=== PATIENT | male | born 1945 | race Caucasian/White ===

== ENCOUNTER 2020-04-29 15:59 | Inpatient (IN) ==
[2020-04-29 17:21] LABS: Basophils % 0.7 % (0.0-0.8); Eosinophils # 0.3 10*3/uL (0.0-0.87); Eosinophils % 5.9 % (0.00-10.9); Hematocrit 36.7 VOL% (42.0-52.0); Hemoglobin 12.3 GM/DL (14.0-18.0); Immature Granulocytes % 0.2 %; Immature Granulocytes Absolute 0.01 #; Lymphocytes # 1.5 10*3/uL (1.4-4.0); Lymphocytes % 26.1 % (21.2-54.2); Mean Corpuscular HGB Conc 33.5 GM/DL (32-36); Mean Corpuscular Volume 96.8 FL (87-102); Mean Platelet Volume 10.3 FL (9.6-12.0); Monocytes % 11.2 % (1.7-12.7); Neutrophils % 55.9 % (38.7-73.9); Platelet Count 162 T/CUMM (130-400); Red Blood Count 3.79 MC/CUMM (3.8-5.5); Red Cell Distribution Width 12.9 % (9.3-17.3); White Blood Count 5.6 T/CUMM (4-12)
[2020-04-29 18:11] LABS: Albumin 3.3 G/DL (3.4-5.0); Bilirubin,Total 0.7 MG/DL (0.2-1.0); Osmolality,Calculated 294.7 MOS/KG (273-304); Potassium 3.9 MMOL/L (3.5-5.1); Total Protein 6.5 G/DL (6.4-8.3)
[2020-04-29 19:18] LABS: Bilirubin,Urine Negative (Negative); Blood, Urine Negative (Negative); Glucose,Urine (UA) Negative (Negative); Ketones,Urine Negative (Negative); Mucus,Urine Occasional /LPF (Occasional); Nitrite,Urine Negative (Negative); Protein,Urine Negative; RBC,Urine 2 /HPF (0-4); Squamous Epithelial Cell,Urine Occasional /HPF (0-10); Urine Appearance CLEAR (Clear); Urine Color Yellow (Yellow); Urine Specific Gravity 1.012 (1.001-1.035); Urine Urobilinogen < 2.0 EU/DL (0.2-1.0); WBC,Urine 1 /HPF (0-6)
[2020-04-29 19:26] LABS: Barbiturates Screen,Urine Negative (Negative); Benzodiazepines Screen,Urine Negative (Negative); Cannabinoid Screen,Urine Negative (Negative); Opiate Screen,Urine Negative (Negative); Phencyclidine Screen,Urine Negative (Negative)
[2020-04-29] MEDS ORDERED: DEXTROSE 50% 25 GM/50 ML VIAL IV PRN (21:37)
[2020-04-29] MEDS ORDERED: ACETAMINOPHEN 325 MG TABLET PO PRN (21:37)
[2020-04-29] MEDS ORDERED: GLUCAGON 1 MG VIAL IM PRN (21:37)
[2020-04-29] MEDS ORDERED: ONDANSETRON 4 MG/2 ML VIAL IV PRN (21:37)
[2020-04-29] MEDS ORDERED: hydrALAZINE 20 MG/1 ML VIAL IV PRN (21:47)
[2020-04-29] MEDS: ENOXAPARIN 30 MG/0.3 ML SYRINGE SUBCUT SCH (23:20)
[2020-04-29] MEDS: SODIUM CHLORIDE 0.45% 1,000 ML IV SCH (23:22)
[2020-04-30] MEDS: SODIUM CHLORIDE 0.45% 1,000 ML IV SCH ×3 (07:22→21:13)
[2020-04-30 09:09] LABS: Basophils % 0.9 % (0.0-0.8); Eosinophils # 0.3 10*3/uL (0.0-0.87); Eosinophils % 5.4 % (0.00-10.9); Hematocrit 36.2 VOL% (42.0-52.0); Hemoglobin 12.4 GM/DL (14.0-18.0); Immature Granulocytes % 0.4 %; Immature Granulocytes Absolute 0.02 #; Lymphocytes # 1.1 10*3/uL (1.4-4.0); Lymphocytes % 24.5 % (21.2-54.2); Mean Corpuscular HGB Conc 34.3 GM/DL (32-36); Mean Platelet Volume 10.1 FL (9.6-12.0); Monocytes % 10.3 % (1.7-12.7); Neutrophils % 58.5 % (38.7-73.9); Platelet Count 161 T/CUMM (130-400); Red Blood Count 3.81 MC/CUMM (3.8-5.5); Red Cell Distribution Width 12.7 % (9.3-17.3); White Blood Count 4.7 T/CUMM (4-12)
[2020-04-30] MEDS: PANTOPRAZOLE 40 MG TABLET PO SCH (09:15)
[2020-04-30 09:29] LABS: Albumin 3.1 G/DL (3.4-5.0); Bilirubin,Total 0.6 MG/DL (0.2-1.0); Calcium 10.5 MG/DL (8.5-10.1); Osmolality,Calculated 294.7 MOS/KG (273-304); Total Protein 6.2 G/DL (6.4-8.3)
[2020-04-30 09:30] LABS: Risk Ratio 2.42; VLDL CHOLESTEROL 13.6 MG/DL
[2020-04-30] MEDS: ENOXAPARIN 30 MG/0.3 ML SYRINGE SUBCUT SCH (21:13)
[2020-05-01] MEDS: SODIUM CHLORIDE 0.45% 1,000 ML IV SCH ×3 (05:01→21:33)
[2020-05-01 06:02] LABS: Calcium 10.4 MG/DL (8.5-10.1); Osmolality,Calculated 289.1 MOS/KG (273-304); Potassium 3.5 MMOL/L (3.5-5.1)
[2020-05-01] MEDS: PANTOPRAZOLE 40 MG TABLET PO SCH (08:47)
[2020-05-01] MEDS: amLODIPine 5 MG TABLET PO SCH (10:01)
[2020-05-01] MEDS: ENOXAPARIN 30 MG/0.3 ML SYRINGE SUBCUT SCH (21:32)
[2020-05-02] MEDS: SODIUM CHLORIDE 0.45% 1,000 ML IV SCH (05:05)
[2020-05-02 06:25] LABS: Osmolality,Calculated 289.8 MOS/KG (273-304); Potassium 3.6 MMOL/L (3.5-5.1)
[2020-05-02] MEDS: PANTOPRAZOLE 40 MG TABLET PO SCH (08:57)
[2020-05-02] MEDS: amLODIPine 5 MG TABLET PO SCH (08:57)
[2020-05-02 11:46] VITALS: BP 169/72
[2020-05-02 13:19] LABS: Total Volume,Urine 3800 ML (400-2000)
[2020-05-02 13:25] LABS: Total Protein 24 Hr Ur Result 570 MG/24HR (0-149.1)
[2020-05-03 07:53] LABS: Total Protein (Chem) 6.2 G/DL (6.4-8.3)
[2020-05-03 09:21] LABS: 24 Hr Protein (Bench) 570 MG/24HR (0-149.1)
[2020-05-03 10:02] LABS: Albumin (SPE) 4.3 G/DL (3.2-5.3); Albumin (SPE) Rel % 68.6 %; Alpha 1 (SPE) 0.1 G/DL (0.1-0.4); Alpha 1 (SPE) Rel % 2.2 %; Alpha 2 (SPE) 0.5 G/DL (0.4-1.0); Alpha 2 (SPE) Rel % 8.6 %; Beta (SPE) 0.5 G/DL (0.5-1.1); Beta (SPE) Rel % 8.5 %; Gamma (SPE) 0.8 G/DL (0.7-1.7); Gamma (SPE) Rel % 12.1 %
[2020-05-04 13:46] LABS: Total Volume 3800 mL
[2020-05-06 15:07] LABS: PTH-Related Peptide 1.5 pmol/L (< or = 4.2)
== END 2020-05-02 12:55 | disposition home or self-care (01) | DRG 682 ==
LOC: N.ED 15:59 → N.EDINP 15:59 → N.4E 21:11
PROVIDERS: ADMIT Internal Medicine; ATTEND Internal Medicine